=== PATIENT | female | born 1945 ===

== ENCOUNTER 2022-12-10 06:04 | Day surgery (SDC) | payer OTHER | END 2022-12-10 10:35 | disposition home or self-care (01) | LOC: AMB-ENDOS 06:04 | PROVIDERS: ATTEND Colon & Rectal Surgery | DX: D12.2 Benign neoplasm of ascending colon (principal); Z86.010 Personal history of colon polyps; K57.30 Diverticulosis of large intestine without perforation or abscess without bleeding; K64.8 Other hemorrhoids; Z88.0 Allergy status to penicillin; Z88.2 Allergy status to sulfonamides; Z20.822 Contact with and (suspected) exposure to COVID-19 ==